=== PATIENT | female | born 1980 ===

== ENCOUNTER 2017-01-16 11:02 | Emergency (ER) | payer OTHER ==
[2017-01-16 11:10] VITALS: TEMP 97.5; O2SAT 98
[2017-01-16] MEDS ORDERED: Bacitracin 500 Units/gm Oint Foilpak UD TOP ONE (11:44)
[2017-01-16] MEDS ORDERED: Bacitracin 500 Units/gm Oint Foilpak UD ONE (11:49)
--- NOTE | 2017-01-16 12:18 | C.PDOC ---
History Of Present Illness 36 Yo female c/o dog bite to b/l hands since morning. Pt notes that she was breaking up her dog (Pitbull) and another dog, and put her hands at her dogs mouth and got bit. Notes her dog is up to date on its vaccines. States she went to her PMD , received a tetanus shot and came to ER for Xrays. No change in sensation. Time Seen by Provider: 01/16/17 11:22 Chief Complaint (Nursing): Bite History Per: Patient History/Exam Limitations: no limitations Onset/Duration Of Symptoms: Hrs Current Symptoms Are (Timing): Still Present Location Of Injury: Right: Hand, Left: Hand Quality Of Symptoms: Painful, Swollen Past Medical History Vital Signs: Last Vital Signs Temp 97.5 F L 01/16/17 11:06 Pulse 96 H 01/16/17 11:06 Resp 20 01/16/17 11:06 BP 113/78 01/16/17 11:06 Pulse Ox 98 01/16/17 12:18 Family History: States: Unknown Family Hx - Social History Hx Alcohol Use: No Hx Substance Use: No - Immunization History Hx Tetanus Toxoid Vaccination: Yes (Today) Hx Influenza Vaccination: No Hx Pneumococcal Vaccination: No Review Of Systems Except As Marked, All Systems Reviewed And Found Negative. Constitutional: Negative for: Fever Musculoskeletal: Positive for: Hand Pain Physical Exam - Physical Exam Appears: Well, Non-toxic, No Acute Distress Skin: Warm, Dry, Other ((+) puncture wound to left 4th finger and right 1st- 3rd. Some decreased ROM and swelling and 1 cm laceration to the right thumb. All wounds approximated well , no surrounding ertyhema or discharge. ) Head: Atraumatic, Normacephalic Eye(s): bilateral: Normal Inspection, EOMI Nose: Normal Oral Mucosa: Moist Neck: Normal ROM, Supple Chest: Symmetrical Respiratory: No Accessory Muscle Use Back: Normal Inspection Extremity: No Normal ROM (decreased secondary to pain and swelling), Tenderness , Capillary Refill (< 2 sec), Swelling Pulses: Left Radial: Normal, Right Radial: Normal Neurological/Psych: Oriented x3, Normal Motor, Normal Sensation Gait: Steady ED Course And Treatment O2 Sat by Pulse Oximetry: 98 Progress Note: Wound was thoroughly irrigated. Bacitracin applied. Case discussed and pt evaluated by Dr Johnston, agreed upon plan and treatment. Discussed wound care and wound check. Pt was unsure of which antibiotic was given to her, new prescription given. Disposition - Disposition Disposition: HOME/ ROUTINE Disposition Time: 12:17 Condition: STABLE Additional Instructions: Watch for signs of infection including redness, swelling discharge. Wound check with your PMD in 2 days. Return to ER if symptoms persist or worsen. Prescriptions: Amoxicillin/Clavulanate [Augmentin 875 MG-125 MG] 1 tab PO BID #14 tab Instructions: Animal Bite (ED) Forms: [facility] ([place]) - Clinical Impression Clinical Impression: Dog bite
[2017-01-16 12:27] VITALS: BP 120/72; PULSE 85; RESP 18
--- NOTE | 2017-01-16 16:02 | RAD ---
PROCEDURE: Right Hand Radiographs. HISTORY: trauma COMPARISON: None. FINDINGS: BONES: No acute fracture or destructive bony lesion identified. JOINTS: Normal. No osteoarthritic changes. SOFT TISSUES: Normal. OTHER FINDINGS: None. IMPRESSION: No fracture dislocation or suspicious lytic or blastic change right hand.
--- NOTE | 2017-01-16 16:03 | RAD ---
PROCEDURE: Left ring finger radiographs. HISTORY: trauma COMPARISON: None. TECHNIQUE: AP radiograph of the left hand, as well as spot oblique and lateral images of left ring finger were obtained. FINDINGS: LEFT RING FINGER: Left ring finger normal, without fracture of focal lesion. Remainder of the left hand (as seen on the AP view) is grossly unremarkable. JOINTS: Normal. SOFT TISSUES: Normal. OTHER FINDINGS: None. IMPRESSION: Normal left ring finger radiographs.
== END 2017-01-16 12:29 | disposition home or self-care (01) ==
LOC: C.ER 11:02
DX: S61.235A Puncture wound without foreign body of left ring finger without damage to nail, initial encounter (principal); S61.230A Puncture wound without foreign body of right index finger without damage to nail, initial encounter; S61.232A Puncture wound without foreign body of right middle finger without damage to nail, initial encounter; S61.011A Laceration without foreign body of right thumb without damage to nail, initial encounter; W54.0XXA Bitten by dog, initial encounter